=== PATIENT | male | born 1990 ===

== ENCOUNTER 2018-05-05 21:09 | Emergency (ER) | payer OTHER ==
[2018-05-05 21:39] LABS: SQUAMOUS EPITHIAL < 1 /hpf (0-5); URINE BILIRUBIN NEGATIVE (NEGATIVE); URINE BLOOD 1+ (NEGATIVE); URINE CLARITY Clear (Clear); URINE COLOR Yellow (YELLOW); URINE GLUCOSE (UA) NORMAL (Normal); URINE LEUKOCYTE ESTERASE NEG Leu/uL (Negative); URINE PROTEIN NEGATIVE (NEGATIVE); URINE UROBILINOGEN NORMAL mg/dL (0.2-1.0)
[2018-05-05] MEDS ORDERED: Naproxen 550 mg Tab PO ONE ×2 (22:31→22:40)
[2018-05-05] MEDS ORDERED: cefTRIAXone (Rocephin) 250 mg Inj IM STA (23:58)
--- NOTE | 2018-05-06 00:03 | C.PDOC ---
History Of Present Illness 28 year old male presents to the ED c/o right testicle pain that started last night. Patient reports pain is intermittent, noted some pain when he pushes while voiding. Pain worse with movement, notes h/o heavy lifting. Patient states he is sexually active. No new partners. Patient reports pain radiated towards his right sided groin and abdominal area. Patient has no previous history of similar symptoms. Patient denies fever, chills, nausea, vomit, diarrhea, dysuria, hematuria, penile discharge, rash, back pain chest pain or sob. Time Seen by Provider: 05/05/18 21:23 Chief Complaint (Nursing): Male Genitourinary History Per: Patient History/Exam Limitations: no limitations Onset/Duration Of Symptoms: Days Current Symptoms Are (Timing): Still Present Quality Of Discomfort: "Pain" Associated Symptoms: denies: Nausea, Vomiting, Diarrhea, Urinary Symptoms Recent travel outside of the [place]: No Additional History Per: Patient Past Medical History Reviewed: Historical Data, Nursing Documentation, Vital Signs Vital Signs: Last Vital Signs Temp 98.7 F 05/05/18 21:15 Pulse 70 05/05/18 21:15 Resp 20 05/05/18 21:15 BP 113/73 05/05/18 21:15 Pulse Ox 100 05/05/18 21:15 - Medical History PMH: No Chronic Diseases Surgical History: No Surg Hx Family History: States: Unknown Family Hx - Social History Hx Alcohol Use: Yes Hx Substance Use: No - Immunization History Hx Tetanus Toxoid Vaccination: Yes Hx Influenza Vaccination: No Hx Pneumococcal Vaccination: No Review Of Systems Constitutional: Negative for: Fever, Chills Cardiovascular: Negative for: Chest Pain Respiratory: Negative for: Cough, Shortness of Breath Gastrointestinal: Positive for: Abdominal Pain. Negative for: Nausea, Vomiting, Diarrhea Genitourinary: Positive for: Scrotal Pain. Negative for: Dysuria, Hematuria Skin: Negative for: Rash Physical Exam - Physical Exam Appears: Non-toxic, No Acute Distress Skin: Normal Color, Warm, Dry Head: Atraumatic, Normacephalic Eye(s): bilateral: Normal Inspection, EOMI Nose: Normal Oral Mucosa: Moist Neck: Normal ROM, Supple Chest: Symmetrical Cardiovascular: Rhythm Regular Respiratory: Normal Breath Sounds, No Rales, No Rhonchi, No Wheezing Gastrointestinal/Abdominal: Soft, Tenderness (RLQ tenderness), No Guarding, No Rebound Back: No CVA Tenderness Male Genital: Testicular Tenderness (right testicle), No Testicular Swelling, Inguinal Tenderness (rigth sided), No Inguinal Swelling, No Circumcised (uncircumcised) Extremity: Normal ROM Neurological/Psych: Oriented x3, Normal Speech, Normal Cognition Gait: Steady ED Course And Treatment - Laboratory Results Result Diagrams: 05/06/18 00:26 05/06/18 00:26 O2 Sat by Pulse Oximetry: 100 (ON RA) Pulse Ox Interpretation: Normal - CT Scan/US Testicular US Other Rad Studies (CT/US): Read By Radiologist, Radiology Report Reviewed CT/US Interpretation: History. Right testicular pain. Technique. Realtime sonography through the scrotum with color and doppler flow. Findings. Right Testicle. Measures 4.6 x 2.1 x 3.0 cm. Normal echotexture and flow. Right Epididymis. Epididymal head measures 0.9 x 1.2 x 1.1 cm. Grossly unremarkable appearance with normal flow. Left Testicle. Measures 4.7 x 2.1 x 2.9 cm. Normal echotexture and flow. Left Epididymis. Epididymal head measures 1.1 x 1.0 x 0.8 cm. Grossly unremarkable appearance with normal flow. Hydrocele. Right small hydrocele is seen. Varicocele. Bilateral small varicocele is seen. . Impression. 1. Right small hydrocele. 2. Bilateral small varicoceles. . Electronically signed on May 05, 2018 11:53:35 PM EST by: Dave Ochoa M.D., MATIAS Certified By [employer] & [employer]. Fellowship Trained MRI and CT Specialist. CT abd/pelvis Other Rad Studies (CT/US): Read By Radiologist, Radiology Report Reviewed CT/US Interpretation: CT SCAN OF THE ABDOMEN AND PELVIS WITH CONTRAST. CLINICAL HISTORY: Abdominal pain. TECHNIQUE: Multiple axial and coronal CT images were obtained through the abdomen and pelvis after administration of intravenous contrast material. COMMENTS: Moderate amount of fecal residue is noted in the large bowel. Fecal residue is noted in the distal small bowels. The liver is of uniform attenuation without mass or defect. There is no intra or extrahepatic biliary ductal dilatation. The spleen is normal. The gallbladder is within normal limits. The pancreas is of normal contour and attenuation characteristics. There is no evidence of adrenal mass. Both kidneys demonstrate prompt and equal nephrograms. The kidneys are normal in size, shape and configuration. There is no evidence of renal or ureteral mass. No renal or ureteral calculi are identified. There is no hydroureter or hydronephrosis. No evidence for appendicitis. There is no bowel wall thickening. No evidence for small or large bowel obstruction. There is no evidence of abdominal ascites or lymphadenopathy. There is no evidence of intrinsic or extrinsic bladder mass. There is no pelvic ascites or lymphadenopathy. Images of the lung bases show no evidence of pleural or parenchymal mass. There are no pleural effusions. The bony structures are free of lytic or blastic lesions. IMPRESSION: Moderate constipation. No evidence of acute abdominal or pelvic pathology. Thank you for your kind referral of this patient. . Electronically signed on May 06, 2018 1:56:20 AM EST by: Hortencia Doty M.D., Certified by ELYSIA, K, Neuroradiology Progress Note: Plan: - CT abd/pelvis. - Labs. - Naproxen 550 mg PO. - Rocephin 250 mg IM. - IV fluids. - Zithromax 1,000 mg PO. - Urine culture. - UA. - testicular US. On re-evaluation, patient is resting comfortably, and is in no acute distress. Pt was explianed CT results and given copies. Patient was instructed to follow up with PMD/ urologist in 1-2 days for further evaluation. Instructed to return to ER if symptoms persist or worsen. Disposition - Disposition Referrals: Sarthak Montoya MD [Staff Provider] - Disposition: HOME/ ROUTINE Disposition Time: 02:04 Condition: STABLE Additional Instructions: Follow up with your primary medical doctor or clinic in 2-5 days for further evaluation. Take medications as prescribed. Return to the emergency department at any time if symptoms persist or worsen. Instructions: Acute Abdomen (Belly Pain), Adult (DC) Forms: [facility] (Amharic), Work Excuse - Clinical Impression Clinical Impression: Abdominal pain, Groin strain - PA / TAX COMMISSIONER / Resident Statement MD/DO has reviewed & agrees with the documentation as recorded. - Scribe Statement The provider has reviewed the documentation as recorded by the Scribe Can Sal All medical record entries made by the Scribe were at my direction and personally dictated by me. I have reviewed the chart and agree that the record accurately reflects my personal performance of the history, physical exam, m edical decision making, and the department course for this patient. I have also personally directed, reviewed, and agree with the discharge instructions and disposition.
[2018-05-06] MEDS ORDERED: Sodium Chloride 0.9% 1,000 ML IV ONE (00:04)
[2018-05-06 00:34] LABS: BASO % 0.5 % (0.0-2.0); EOS # 0.4 K/uL (0.0-0.7); EOS % 4.8 % (0.0-4.0); HEMOGLOBIN 15.4 g/dL (12.0-18.0); LYMPH # 3.3 K/uL (1.0-4.3); LYMPH % 43.1 % (20.0-40.0); MEAN CELL VOLUME 84.7 fL (80.0-94.0); MEAN CORPUSCULAR HEMOGLOBIN 29.6 pg (27.0-31.0); MEAN CORPUSCULAR HGB CONC 34.9 g/dL (33.0-37.0); MEAN PLATELET VOLUME 7.4 fL (7.2-11.7); MONO # 0.6 K/uL (0.0-0.8); MONO % 7.8 % (0.0-10.0); NEUT # 3.4 K/uL (1.8-7.0); NEUT % 43.8 % (50.0-75.0); NRBC % 0.1 % (0.0-2.0); RBC 5.21 Mil/uL (4.40-5.90); RED CELL DISTRIBUTION WIDTH 13.3 % (11.5-14.5); WHITE BLOOD COUNT 7.7 K/uL (4.8-10.8)
[2018-05-06 00:40] LABS: ALB/GLOB RATIO 1.4 (1.0-2.1); ALBUMIN 4.2 g/dL (3.5-5.0); ALT/SGPT 27 U/L (21-72); AST/SGOT 24 U/L (17-59); BLOOD UREA NITROGEN 14 mg/dL (9-20); CALCIUM 9.1 mg/dl (8.6-10.4); GFR NON-AFRICAN AMERICAN > 60; LIPASE 66 U/L (23-300)
[2018-05-06] MEDS ORDERED: Iodixanol 320 MG/ML 100 ML BOTTLE IV ONE (00:54)
[2018-05-06 01:49] VITALS: BP 105/66; PULSE 56; RESP 18; TEMP 98
[2018-05-06 01:58] VITALS: O2SAT 100
--- NOTE | 2018-05-06 09:54 | US ---
Date of service: 05/05/2018 HISTORY: Left testicular pain TECHNIQUE: Realtime sonography through the scrotum with color and doppler flow. COMPARISON: None Available. FINDINGS: RIGHT TESTICLE: Measures 4.6 x 2.1 x 3.0 cm. Normal echotexture and flow. RIGHT EPIDIDYMIS: Epididymal head measures 0.9 x 1.2 x 1 point cm. Grossly unremarkable appearance with normal flow. LEFT TESTICLE: Measures 4.7 x 2.1 x 2.9 cm. Normal echotexture and flow. LEFT EPIDIDYMIS: Epididymal head measures 1.1 x 1.0 x 0.8 cm. Grossly unremarkable appearance with normal flow. HYDROCELE: There is a small right hydrocele. VARICOCELE: There are bilateral small varicoceles. OTHER FINDINGS: None. IMPRESSION: No evidence for testicular mass or torsion. Bilateral small varicoceles. Small right hydrocele. A preliminary report was provided by [employer].
--- NOTE | 2018-05-06 10:56 | CT ---
Date of service: 05/06/2018 PROCEDURE: CT Abdomen and Pelvis with contrast HISTORY: right sided pain COMPARISON: None available. TECHNIQUE: Contrast dose: 100 mL Visipaque 320 IV Radiation dose: Total exam DLP = 1265.2 mGy-cm. This CT exam was performed using one or more of the following dose reduction techniques: Automated exposure control, adjustment of the mA and/or kV according to patient size, and/or use of iterative reconstruction technique. FINDINGS: LOWER THORAX: No visible consolidation, pleural effusion, or pneumothorax. There are two 5 mm nodules in the right middle lobe (series 5, image 12). 7 mm right middle lobe nodule (series 5, image 6). LIVER: Unremarkable. GALLBLADDER AND BILE DUCTS: Unremarkable. PANCREAS: Unremarkable. SPLEEN: Unremarkable. ADRENALS: Unremarkable. KIDNEYS AND URETERS: The kidneys enhance symmetrically. No hydronephrosis or obstructing calculus identified. VASCULATURE: No aortic aneurysm. No atherosclerotic calcification or mural plaque present. BOWEL: Stomach is nondistended. Lack of oral contrast limits evaluation for bowel pathology. Bowel loops appear within normal limits of caliber without evidence of obstruction. APPENDIX: The appendix appears within normal limits of caliber. No secondary signs of acute appendicitis. PERITONEUM: No significant free fluid. No definite free air. LYMPH NODES: No bulky adenopathy identified. BLADDER: Unremarkable. REPRODUCTIVE: Unremarkable. BONES: No acute osseous abnormality is detected. OTHER FINDINGS: None. IMPRESSION: There are multiple, solid, pulmonary nodules that measure up to 7 mm in size. According to the 2017 Fleischner criteria, the patient is low risk, CT at 3-6 months is recommended, then consider CT at 18-24 months. If the patient is high risk, CT at 3-6 months is recommended, then at 18-24 months. Mild to moderate constipation. Preliminary impression was provided by [employer]. Study was placed in the PA review folder and discussed with GREGORY Frazier on 05/06/18 at 10:46 a.m.
== END 2018-05-06 02:15 | disposition home or self-care (01) ==
LOC: C.ER 21:09
DX: R10.31 Right lower quadrant pain (principal); S39.011A Strain of muscle, fascia and tendon of abdomen, initial encounter; X58.XXXA Exposure to other specified factors, initial encounter
CPT/HCPCS: 74177; 76870; 80053; 81001; 83690; 85025; 87086; 87491; 87591; 96372; 99285; J0696; J7030; Q9967